=== PATIENT | male | born 1995 | race Caucasian/White ===

== ENCOUNTER 2021-04-16 14:58 | Emergency (ER) | payer BC ==
[~2021-04-16] VITALS: Ht 167.6 cm; Wt 75.7 kg
[2021-04-16 15:22] LABS: MEAN CORPUSCULAR HEMOGLOBIN 31.1 uug (23.8-33.4); MEAN CORPUSCULAR VOLUME 90.8 fL (73.0-96.2); PLATELET COUNT (AUTO) 221 K/uL (152-348)
[2021-04-16 15:26] LABS: CREATININE 1.1 mg/dL (0.6-1.3); POTASSIUM 4.4 mmol/L (3.5-5.1)
[2021-04-16 15:57] VITALS: BP 146/82
== END 2021-04-16 15:58 | disposition home or self-care (01) ==
LOC: ER 14:58
DX: R25.2 Cramp and spasm (principal); M62.830 Muscle spasm of back; R25.3 Fasciculation; F43.12 Post-traumatic stress disorder, chronic
CPT/HCPCS: 36415; 85025; 93005; A4663